=== PATIENT | male | born 1980 | race Caucasian/White ===

== ENCOUNTER → 2016-07-07 | Outpatient (CLI) | payer BC ==
[~2016-07-07] MED LIST: ALBU0.63; ATOR10TA; CYCL1DRO; DICY20TA33 PO; DXZS4T PO; FLT4413; GENGRAF PO; HYDR-3702 PO; INDAPAMIDE; METH4TAB27 PO; MONT5TAB; NF-FLON16G; OXYC10TA85 PO; POTA99TA16; PRD1T; SODI325T; [UNRECOGNIZED DRUG - OTHER]; [UNRECOGNIZED DRUG - OTHER]; [UNRECOGNIZED DRUG - OTHER]; [UNRECOGNIZED DRUG - REMARK]
[2016-07-07 06:39] LABS: BASOPHILS % (AUTO) 0 % (0-2); EOSINOPHILS # (AUTO) 0.1 10^3uL; EOSINOPHILS % (AUTO) 1 % (0-4); LYMPHOCYTES # (AUTO) 1.3 X10^3; MEAN CORPUSCULAR HEMOGLOBIN 29.5 PG (26.0-34.0); MEAN CORPUSCULAR HGB CONC 34.7 g/dL (31.0-37.0); MEAN CORPUSCULAR VOLUME 85 FL (80-100); MEAN PLATELET VOLUME 9.4 FL (6.0-9.5); MONOCYTES # (AUTO) 0.6 X10^3; MONOCYTES % (AUTO) 9 % (3-11); NEUTROPHILS % (AUTO) 71 % (51-67); PLATELET COUNT 216 10^3uL (150-450); WHITE BLOOD COUNT 7.09 10^3uL (4.0-11.0)
[2016-07-07 06:57] LABS: ALBUMIN 4.4 g/dL (3.4-5.0); ANION GAP 14.4 MEQ/L (3-15)
== END ==
LOC: LAB 06:29
PROVIDERS: ATTEND Specialist
DX: Z94.0 Kidney transplant status (principal); D63.1 Anemia in chronic kidney disease; E29.1 Testicular hypofunction; Z79.899 Other long term (current) drug therapy
CPT/HCPCS: 36415; 80069; 80158; 85025

== ENCOUNTER → 2016-09-09 | Outpatient (CLI) | payer BC ==
[2016-09-09 09:09] LABS: BASOPHILS % (AUTO) 0 % (0-2); EOSINOPHILS % (AUTO) 1 % (0-4); LYMPHOCYTES # (AUTO) 1.2 X10^3; MEAN CORPUSCULAR HEMOGLOBIN 29.4 PG (26.0-34.0); MEAN CORPUSCULAR HGB CONC 34.2 g/dL (31.0-37.0); MEAN CORPUSCULAR VOLUME 86 FL (80-100); MEAN PLATELET VOLUME 9.7 FL (6.0-9.5); MONOCYTES # (AUTO) 0.4 X10^3; MONOCYTES % (AUTO) 8 % (3-11); NEUTROPHILS # (AUTO) 3.2 X10^3; NEUTROPHILS % (AUTO) 66 % (51-67); PLATELET COUNT 165 10^3uL (150-450); WHITE BLOOD COUNT 4.88 10^3uL (4.0-11.0)
[2016-09-09 10:09] LABS: ALBUMIN 4.2 g/dL (3.4-5.0); ANION GAP 13.4 MEQ/L (3-15); PHOSPHORUS 3.6 mg/dL (2.4-4.9)
== END ==
LOC: LAB 08:52
PROVIDERS: ATTEND Specialist
DX: Z79.899 Other long term (current) drug therapy (principal); Z94.0 Kidney transplant status; D63.1 Anemia in chronic kidney disease; E29.1 Testicular hypofunction; Z12.5 Encounter for screening for malignant neoplasm of prostate
CPT/HCPCS: 36415; 80069; 84153; 85025

== ENCOUNTER 2016-09-10 13:00 | Outpatient (RCR) | payer BC ==
--- NOTE | 2016-09-22 14:58 | PT/OT/ST INITIAL EVALUATION ---
Department of Health and Human Services Form Approved [facility] Care Financing Administration OMB No. [id number] PLAN OF CARE/ASSESSMENT FOR OUTPATIENT REHABILITATION (Complete for Initial Claims Only) 1. PATIENT'S NAME Augusto Em 2. ACC # [id number] 3. HICN NA 4. PROVIDER NO. [id number] 5. TYPE: PT 6. PRIOR HOSPITALIZATION None 7. PRIMARY DX Low back pain and spasming 8. SECONDARY DX NA 9. ONSET DATE 10. REFERRAL DATE NA 11. SOC. DATE 09/12/2016 12. TIME OF EVAL 16:07 p.m. 12. REFERRING PHYSICIAN Dr. Galen Bangura 13. CHARGES/UNITS NA 14. G CODES NA 15. PRIOR LEVEL OF FUNCTION; PERTINENT HISTORY (Prior therapy results, reason for referral.) S: Prior to therapy, the patient did consent to today's evaluation and treatment. The patient is a 36-year-old male referred to therapy by Galen Bangura MD to address low back pain with spasming. Personal health rating: The patient does rate his overall and general health as good. Primary Complaint: The patient states Thursday, previous to this evaluation, he was over-seeding his lawn where he was power raking and doing other heavy work. 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 The patient does have a trip to [place] planned for the day following this evaluation and the patient will be off to [facility] for approximately 1 month. Prior level of function: Includes the patient being unlimited in all activity and able to perform all activity with minor low back pain. Current level of function: Currently the patient is having difficulty getting in and out of bed, difficulty sleeping, bending, lifting, and performing his photography work duties. The patient additionally has weakness on the left side with weightbearing and he has pain in his feet all the time due to a previous back surgery and nerve damage. Therapy History: Includes PT in the past with good results. No obstacles of delivery of care are observed. Pain rating: Maximal pain level is 7 to 8/10. The patient describes the pain as a sharp, stiff sensation. Aggravating factors: Include any activity. Relieving factors: Include resting and heat. Diagnostic testing: No diagnostic tests have been performed at this time. Past medical history: Include hypertension, and kidney transplant. Current medications: Include OxyContin and methocarbamol. Patient's Goal: The patient's goal for physical therapy is to decrease the pain to loosen up so that he can leave and have a good time on his trip to [place]. 16. INITIAL ASSESSMENT/SAFETY PRECAUTIONS/MEDICAL COMPLICATIONS (Level of function at start of care. Be specific, use objective measures, list problems.) O: APPEARANCE AND OBSERVATION: The patient presents as a middle aged male in apparently healthy condition. He does ambulate with an antalgic gait pattern with decreased stance on the left side. The patient additionally has increased guarding with all transitions and presents to physical therapy with rounded shoulders and a forward head. PALPATION: With palpation the patient does have an increased tone in the right paraspinals, as well as the right piriformis muscle around the greater trochanter insertion. SPECIAL TESTS: Include a positive right Trendelenburg test. Decreased excursion of the left PSIS with the stork test. RANGE OF MOTION/FLEXIBILITY: Not tested secondary to pain and guarding. Hamstring flexibility was within normal limits and grossly equal bilaterally. STRENGTH: Strength throughout bilateral lower extremities were 4+/5 throughout with the exception of hip abduction, which tests 3/5. TODAY'S TREATMENT: Following the initial evaluation an ultrasound treatment was performed through lumbar spine paraspinals. Manual therapy techniques including ASTYM were then performed to the low back and hip area. An electrical stimulation treatment with a moist heat pack was then performed. The patient did have significant decreased pain following this treatment and did have improved transitions. 17. INITIAL POC: (Specify procedures, modalities, short and terminal operations supervisor goals) A: The patient presents at physical therapy with the diagnosis of low back pain and spasming with resultant decreased flexibility, increased lumbar spine paraspinal tone, decreased transitions and guarding with all movement. PROGNOSIS: This patient does have a good prognosis with regular therapy attendance and compliance with home exercise program. This patient is expected to benefit from physical therapy services in order to have decreased spasming, decreased pain to be able to go on his trip. INFORMED CONSENT: The diagnosis, prognosis, treatment plan, risks and expected outcomes were discussed with the patient and the patient did agree to today's established plan of care. OUTCOME ASSESSMENT: Modified Oswestry low back pain disability questionnaire which scored 28% disability. SHORT TERM GOALS: 1. The patient to be independent and compliant with home exercise program in 1 week. 2. The patient with maximum pain 4/10 with activity in 3 weeks to allow full photography work. 3. The patient with a Modified Oswestry low back pain disability questionnaire no more than 10% disability in 4 weeks for return to work outs. P: Plan to treat th patient 2 times a week for 4 weeks in order to address low back pain and spasming. Therapeutic treatments to include modalities to decrease pain, inflammation and spasming. Manual therapy techniques as indicated. Therapeutic exercise targeting active range of motion, strengthening and core and lower extremity stabilization, gait training, balance and proprioceptive training and patient education in home exercise program to be advanced as warranted. 18. FREQUENCY 2 times a week 19. DURATION 4 weeks 20. FUNCTIONAL LEVEL (End of claim period) 21. PHYSICIAN SIGNATURE ? ON FILE OR ENTER HERE: 22. DATE: I certify the need for these services furnished under this plan of care and if for partial hospitalization. 23. CERTIFICATION FROM THROUGH FORM [id number]
== END 2016-10-20 13:20 | disposition home or self-care (01) ==
LOC: PT 13:00
PROVIDERS: ATTEND Anesthesiology
DX: M54.16 Radiculopathy, lumbar region (principal)
CPT/HCPCS: 97035; 97140; 97161; G0283; 97014

== ENCOUNTER → 2016-11-07 | Outpatient (CLI) | payer BC ==
[2016-11-07 08:23] LABS: MEAN CORPUSCULAR HEMOGLOBIN 28.5 PG (26.0-34.0); MEAN CORPUSCULAR HGB CONC 33.6 g/dL (31.0-37.0); MEAN PLATELET VOLUME 9.6 FL (6.0-9.5); WHITE BLOOD COUNT 8.32 10^3uL (4.0-11.0)
[2016-11-07 08:35] LABS: ALBUMIN 4.4 g/dL (3.4-5.0); ANION GAP 17.8 MEQ/L (3-15)
== END ==
LOC: LAB 08:05
PROVIDERS: ATTEND Internal Medicine
DX: Z94.0 Kidney transplant status (principal)
CPT/HCPCS: 36415; 80069; 80158; 85027